=== PATIENT | male | born 1990 | race Caucasian/White ===

== ENCOUNTER 2017-07-24 20:30 | Emergency (ER) | payer OTHER ==
[2017-07-24] MEDS ORDERED: Sodium Chloride 0.9% 1000 ML 1,000 ML IV STA (20:54)
[2017-07-24] MEDS ORDERED: MORPHINE SULFATE 4 MG INJ IV ONE (20:54)
[2017-07-24] MEDS ORDERED: Zofran 4 MG/2 ML VIAL IV ONE (20:54)
[2017-07-24] MEDS ORDERED: MORPHINE SULFATE 4 MG INJ ONE (21:00)
[2017-07-24] MEDS ORDERED: Zofran 4 MG/2 ML VIAL ONE (21:00)
[2017-07-24] MEDS ORDERED: Sodium Chloride 0.9% 1000 ML 1,000 ML ONE (21:00)
--- NOTE | 2017-07-24 21:00 | ERPHSYRPT ---
- History of Present Illness Time Seen by Provider: 07/24/17 20:45 Historian: patient Exam Limitations: no limitations Patient Subjective Stated Complaint: pt states he has been vomiting and having abd pain for the past 4 days Triage Nursing Assessment: pt alert and oriented, asnwers questions approp. pt ambultory from wheelchiar to stretcher, stooped over and holding arm across abd. abd soft, tender to light palpation. bowel sounds present, hypo. respirations nonlabored with lungs cta. pt tearful, holding abd, with legs drawn up and moving constantly. Physician History: 27 y/o male comes to the ER with complaints of diffuse abdominal pain as well as multiple episodes of nausea and vomiting for the past 4 days. Pt describes the pain as sharp, constant, 10/10, with radiation up to chest and not relieved by protonix and zofran. Pt says he is not able to keep anything down. Pt was seen at [facility] twice in the last 2 days. Pt denies any fever, chills, diarrhea , constipation or bloody stools. Timing/Duration: day(s) Activities at Onset: none Quality: sharpness Abdominal Pain Onset Location: generalized abdomen Pain Radiation: chest Severity of Pain-Max: severe Severity of Pain-Current: severe Modifying Factors: Improves With: nothing Associated Symptoms: vomiting Allergies/Adverse Reactions: No Known Drug Allergies Allergy (Unverified 07/24/17 20:53) Home Medications: No Reportable Medications [No Reported Medications] 07/24/17 [History] Hx Tetanus, Diphtheria Vaccination/Date Given: Yes Hx Influenza Vaccination/Date Given: No Hx Pneumococcal Vaccination/Date Given: No Immunizations Up to Date: Yes - Review of Systems Constitutional: No Fever, No Chills Eyes: No Symptoms Ears, Nose, & Throat: No Symptoms Respiratory: No Cough, No Dyspnea Cardiac: No Chest Pain, No Edema, No Syncope Abdominal/Gastrointestinal: Abdominal Pain, Nausea, Vomiting, No Diarrhea Genitourinary Symptoms: No Dysuria Musculoskeletal: No Back Pain, No Neck Pain Skin: No Rash Neurological: No Dizziness, No Focal Weakness, No Sensory Changes Psychological: No Symptoms Endocrine: No Symptoms All Other Systems: Reviewed and Negative - Past Medical History Pertinent Past Medical History: Yes GI Medical History: Ulcer Other Medical History: hx of abd pain with exp lap - Past Surgical History Past Surgical History: Yes Gastrointestinal: Exploratory Laparoscopy - Social History Smoking Status: Never smoker Exposure to second hand smoke: Yes Drug Use: none Patient Lives Alone: Yes - Nursing Vital Signs Nursing Vital Signs: Initial Vital Signs Temperature 98.5 F 07/24/17 20:37 Pulse Rate 75 07/24/17 20:37 Respiratory Rate 22 07/24/17 20:37 Blood Pressure 119/65 07/24/17 20:37 O2 Sat by Pulse Oximetry 95 07/24/17 20:37 Pain Scale Pain Intensity 4 - Physical Exam General Appearance: no apparent distress, alert Eye Exam: PERRL/EOMI, eyes nml inspection Ears, Nose, Throat Exam: normal ENT inspection, pharynx normal, moist mucous membranes Neck Exam: normal inspection, non-tender, supple, full range of motion Respiratory Exam: normal breath sounds, lungs clear, No respiratory distress Cardiovascular Exam: regular rate/rhythm, normal heart sounds Gastrointestinal/Abdomen Exam: soft, normal bowel sounds, tenderness, No distention, No mass, No guarding Back Exam: normal inspection, normal range of motion, No CVA tenderness, No vertebral tenderness Extremity Exam: normal inspection, normal range of motion, pelvis stable Neurologic Exam: alert, oriented x 3, cooperative, normal mood/affect, nml cerebellar function, sensation nml, No motor deficits Skin Exam: normal color, warm, dry SpO2: 95 Oxygen Delivery: Room Air - Course Nursing assessment & vital signs reviewed: Yes Ordered Tests: Active Orders 24 hr Category Date Time Status IV Insertion STAT Care 07/24/17 20:54 Active ABDOMEN AND PELVIS W CONTRAST [CT] Stat Exams 07/24/17 20:54 Stop Req AMYLASE Stat Lab 07/24/17 21:00 Completed CBC W DIFF Stat Lab 07/24/17 21:00 Completed CMP Stat Lab 07/24/17 21:00 Completed LIPASE Stat Lab 07/24/17 21:00 Completed Lactic Acid Stat Lab 07/24/17 20:54 Completed Medication Summary Generic Name Dose Route Start Last Admin Trade Name Freq PRN Reason Stop Dose Admin Sodium Chloride 1,000 mls @ 999 mls/hr 07/24/17 20:54 07/24/17 21:08 Sodium Chloride 0.9% 1000 Ml IV 07/24/17 21:54 999 mls/hr .Q1H1M STA Administration Discontinued Medications Generic Name Dose Route Start Last Admin Trade Name Freq PRN Reason Stop Dose Admin Baclofen 10 mg 07/24/17 21:49 Lioresal 10 Mg PO 07/24/17 21:50 ONCE ONE Sodium Chloride Confirm 07/24/17 21:00 Sodium Chloride 0.9% 1000 Ml Administered 07/24/17 21:01 Dose 1,000 mls @ ud .ROUTE .STK-MED ONE Morphine Sulfate 4 mg 07/24/17 20:54 07/24/17 21:07 Morphine Sulfate 4 Mg Inj IV 07/24/17 20:55 4 mg STAT ONE Administration Morphine Sulfate Confirm 07/24/17 21:00 Morphine Sulfate 4 Mg Inj Administered 07/24/17 21:01 Dose 4 mg .ROUTE .STK-MED ONE Ondansetron HCl 4 mg 07/24/17 20:54 07/24/17 21:07 Zofran 4 Mg/2 Ml Vial IV 07/24/17 20:55 4 mg STAT ONE Administration Ondansetron HCl Confirm 07/24/17 21:00 Zofran 4 Mg/2 Ml Vial Administered 07/24/17 21:01 Dose 4 mg .ROUTE .STK-MED ONE Lab/Rad Data: Laboratory Result Diagrams 07/24/17 21:00 07/24/17 21:00 Laboratory Results 07/24/17 07/24/17 07/24/17 Range/Units 21:00 21:00 20:54 WBC 10.4 (4.0-10.5) K/mm3 RBC 5.23 (4.1-5.6) M/mm3 Hgb 15.3 (12.5-18.0) gm/dl Hct 44.6 (42-50) % MCV 85.3 (78-100) fl MCH 29.3 (26-32) pg MCHC 34.3 (32-36) g/dl RDW 13.4 (11.5-14.0) % Plt Count 235 (150-450) K/mm3 MPV 10.5 H (6-9.5) fl Gran % 73.4 H (36.0-66.0) % Lymphocytes % 17.3 L (24.0-44.0) % Monocytes % 8.9 (0.0-12.0) % Eosinophils % 0.2 (0.00-5.0) % Basophils % 0.2 (0.0-0.4) % Basophils # 0.02 (0-0.4) Sodium 138 (136-145) mEq/L Potassium 3.5 (3.5-5.1) mEq/L Chloride 102 (98-107) mEq/L Carbon Dioxide 26.9 (21-32) mEq/L Anion Gap 12.9 (5-15) MEQ/L BUN 12 (9-20) mg/dL Creatinine 1.10 (0.55-1.30) mg/dl Estimated GFR > 60 ML/MIN Glucose 103 (70-110) MG/DL Lactic Acid 1.0 (0.4-2.0) Calcium 9.1 (8.5-10.1) mg/dL Total Bilirubin 2.20 H (0.2-1.0) mg/dL AST 28 (15-37) U/L ALT 42 (12-78) U/L Alkaline Phosphatase 70 (46-116) U/L Serum Total Protein 7.4 (6.4-8.2) gm/dL Albumin 4.3 (3.4-5.0) g/dL Amylase 45 (25-115) U/L Lipase 65 L (73-393) U/L - Progress Progress: improved Progress Note: 07/24/17 21:[address] scan abd/pelvis from [facility] was within normal limits and the labs from today are unremarkable except for a slightly higher bilirubin level. Pt was given zofran at [facility] which he will continue and the patient will F/U with his PCP. - Departure Time of Disposition: 21:53 Departure Disposition: Home Clinical Impression: Abdominal pain Qualifiers: Abdominal location: generalized Qualified Code(s): R10.84 - Generalized abdominal pain Condition: Stable Critical Care Time: No Instructions: Abdominal Pain-Adult Additional Instructions: Follow up with your family physician in the next few days.
[2017-07-24 21:22] LABS: BASOPHIL % 0.2 % (0.0-0.4); Eosinophil % 0.2 % (0.00-5.0); Granulocytes % 73.4 % (36.0-66.0); Lymphocytes % 17.3 % (24.0-44.0); Mean Cell Volume 85.3 fl (78-100); Mean Corpuscular Hemoglobin 29.3 pg (26-32); Mean Platelet Volume 10.5 fl (6-9.5); Monocytes % 8.9 % (0.0-12.0); Platelet Count 235 K/mm3 (150-450); Red Blood Count 5.23 M/mm3 (4.1-5.6); Red Cell Distribution Width 13.4 % (11.5-14.0); White Blood Count 10.4 K/mm3 (4.0-10.5)
[2017-07-24 21:42] LABS: ALBUMIN 4.3 g/dL (3.4-5.0); ALKALINE PHOSPHATASE 70 U/L (46-116); ANION GAP 12.9 MEQ/L (5-15); BLOOD UREA NITROGEN 12 mg/dL (9-20); CHLORIDE 102 mEq/L (98-107); Carbon Dioxide 26.9 mEq/L (21-32); Glucose 103 MG/DL (70-110); LIPASE 65 U/L (73-393); Potassium 3.5 mEq/L (3.5-5.1); SGOT/AST 28 U/L (15-37); SGPT/ALT 42 U/L (12-78); SODIUM 138 mEq/L (136-145); Total Protein 7.4 gm/dL (6.4-8.2)
[2017-07-24] MEDS ORDERED: LIORESAL 10 MG PO ONE (21:49)
[2017-07-24] MEDS ORDERED: NORCO 5/325 MG PO ONE (22:32)
[2017-07-24] MEDS ORDERED: NORCO 5/325 MG ONE (22:35)
[2017-07-24 23:03] VITALS: BP 120/76; PULSE 72; O2SAT 97
== END 2017-07-24 23:00 | disposition home or self-care (01) ==
LOC: ED 20:30
DX: R10.84 Generalized abdominal pain (principal); R11.10 Vomiting, unspecified
CPT/HCPCS: 36000; 36415; 80053; 82150; 83605; 83690; 85025; 96360; 96374; 96375; 99284; J2270; J2405; A9270-GY